=== PATIENT | female | born 1990 | race Caucasian/White ===

== ENCOUNTER 2023-11-04 09:02 | Day surgery (SDC) | payer OTHER ==
[~2023-11-04] VITALS: Ht 162.6 cm; Wt 77.3 kg
--- NOTE | ~2023-11-04 | OR ---
[facility] [place] [facility] [address] [place], [place] [address] Draft DATE OF OPERATION: 11/04/2023 SURGEON: Tucker Saunders MD PREOPERATIVE DIAGNOSES: Chronic tonsillitis, tonsil lithiasis. POSTOPERATIVE DIAGNOSES: Chronic tonsillitis, tonsil lithiasis. PROCEDURE: Tonsillectomy. ANESTHESIA: General orotracheal, HOME VISITOR, Jose Raul. PREOPERATIVE HISTORY: Reji is a 33-year-old young lady with chronic tonsillitis, multiple infections, chronic sore throats, tonsil lithiasis, taken to the operating room for the above-mentioned procedures. OPERATIVE PROCEDURE AND FINDINGS: After informed consent, the patient was taken to the operating room, placed in the supine position where general orotracheal anesthesia was induced. The patient and procedure were verified. The patient was repositioned. McIvor mouth gag placed into suspension. Headlight exam of the pharynx showed cryptic very retracted tonsils. The left tonsil was grasped with a tenaculum, retracted medially and removed from its fossa with mucosal sparing incisions with Coblation. The field was dry after the procedure. Same procedure on the right tonsil. Tonsils were sent to pathology. Mouth gag was released for several minutes. Reinspection showed no bleeding points. The pharynx was suctioned clear of blood and secretions. Mouth gag was removed. The patient was awakened, extubated, transported to recovery room in good condition. No complications. BLOOD LOSS: Minimal. SPECIMEN: To pathology. PATIENT NAME: REJI HERNANDEZ OPERATIVE REPORT DATE OF : 88 REPORT #: [id number] PHYSICIAN: TUCKER SAUNDERS MD PCP: ASHLEY OSUNA MD REPORT IS CONFIDENTIAL AND NOT TO BE RELEASED WITHOUT AUTHORIZATION [address] [place] [address] Draft DRAINS: No drains. Tucker Saunders MD /[place] /[id number] Copies: ~ PATIENT NAME: REJI HERNANDEZ OPERATIVE REPORT DATE OF : 88 REPORT #: [id number] PHYSICIAN: TUKCER SAUNDERS MD PCP: ASHLEY OSUNA MD REPORT IS CONFIDENTIAL AND NOT TO BE RELEASED WITHOUT AUTHORIZATION
[~2023-11-04 09:02] MED LIST: ADULT LOW DOSE81 MG PO; ATORVASTATIN CA80 MG PO; CLARITIN10 M2 PO; CORTIFOAM15 GM RC; ENTYVIO300 MG IV; FENOGLIDE40 MG PO; LEVOTHYROXINE25 MCG PO; LIALDA1.2 GM PO; ONDANSETRON ODT4 MG PO; PENICILLIN V P500 MG PO; PEPCID20 MG PO; UCERIS9 MG PO; ZOFRAN ODT4 MG PO
[2023-11-04 09:26] VITALS: BP 119/83
--- NOTE | 2023-11-04 11:44 | NUR ---
11/04/23 1144 Sheets,Rashmi 1134 PT ARRIVED TO PACU ON 6L VIA MASK AND ORAL AIRWAY IN PLACE. PT NONAROUSABLE AND JAW THURST USED OFF AND ON. 1138 PT HEAD TURNED TO SIDE AND JAW THRUST NO LONGER NEEDED. RESP EVEN AND UNLABORED.
[2023-11-04 12:17] VITALS: BP 114/78
[2023-11-04 13:15] VITALS: BP 110/75
[2023-11-04 14:13] VITALS: BP 113/80
[2023-11-04] MEDS ORDERED: HYDROCODONE-AC473 M1 PO (14:26)
--- NOTE | 2023-11-04 14:58 | NUR ---
1220: PATIENT BACK IN DAY SURGERY ROOM FROM PACU. DROWSY, BUT EASILY AWAKENS TO VOICE. C/O PAIN AT BACK OF TONGUE. RATES PAIN 4/10. VS CHECKED. IV SITE WNL. SCDs ON. TOLERATING ICE CHIPS. ICE WATER PLACED AT BEDSIDE. CALL LIGHT WITHIN REACH. AT BEDSIDE. 1315: PATIENT AWAKENED FOR VS CHECK. DROWSY. RATES PAIN 4/10 AT BACK OF TONGUE. ALSO C/O EAR PAIN. NO NEEDS AT THIS TIME. 1415: PATIENT AWAKENED FOR VS CHECK. CONTINUES TO BE DROWSY, BUT AWAKENS EASILY TO VOICE. RATES PAIN 4/10 IN THROAT/BACK OF TONGUE. TOLERATING WATER. ALEYDA SOMETHING TO EAT. STATES WOULD LIKE TO GO HOME. IV SALINE LOCKED. PATIENT ASSISTED OOB AND TO WALK AROUND ROOM. GAIT STEADY. PATIENT GETTING DRESSED. 1435: DISCHARGE INSTRUCTIONS GIVEN TO PATIENT. IV DC'D WNL. TIP INTACT. DRESSING APPLIED. 1442: PATIENT DISCHARGED TO HOME VIA WHEELCHAIR WITH .
--- NOTE | 2023-11-06 10:49 | PATH ---
[facility] [address] [facility] [place], [place] [address] Signed SPECIMEN(S): A LEFT AND RIGHT TONSILS, GROSS ONLY SPECIMEN SOURCE: A. LEFT AND RIGHT TONSILS, GROSS ONLY CLINICAL HISTORY: Recurrent strep throat FINAL PATHOLOGIC DIAGNOSIS: Left and right tonsils, gross only: - Two tonsils, 3.3 x 2 x 1.3 cm and 3 x 2 x 1.7 cm. VR:[facility] MICROSCOPIC EXAMINATION: Histologic sections of all submitted blocks are examined by light microscopy. These findings, together with the gross examination, support the pathologic diagnosis. GROSS DESCRIPTION: The specimen, labeled and designated "Krosting, bilateral tonsils," is received in formalin and consists of 2 undesignated palatine tonsils. The first tonsil is 3.3 x 2.0 x 1.3 cm. The mucosal surface is pink-magallon smooth with areas of folds. Cut sections reveal a pink homogeneous cut surface, with the usual crypt-like architecture. The second tonsil is 3.0 x 2.0 x 1.7 cm. The mucosal surface is pink-magallon smooth with areas of folds. Cut sections reveal a pink homogeneous cut surface, with the usual crypt-like architecture. Gross examination only. JS (under the direct supervision of a pathologist) The Gross Description was prepared using a voice recognition system. The report was reviewed for accuracy; however, sound-alike word errors, addition and/or deletions may occur. If there is any question about this report, please contact Client Services. PERFORMING LABORATORY: Technical component was performed by [facility], [address] [place] [id number] (CLIA# [id number]). Diagnostician: Akin Brown MD Pathologist Electronically Signed 11/06/2023 PATIENT NAME: REJI HERNANDEZ PATHOLOGY DATE OF : 88 REPORT #: [id number] PHYSICIAN: [facility] PCP: ASHLEY OSUNA MD REPORT IS CONFIDENTIAL AND NOT TO BE RELEASED WITHOUT AUTHORIZATION [address] [address] Signed Copies: ~ PATIENT NAME: REJI HERNANDEZ PATHOLOGY DATE OF : 88 REPORT #: [id number] PHYSICIAN: [facility] PCP: ASHLEY OSUNA MD REPORT IS CONFIDENTIAL AND NOT TO BE RELEASED WITHOUT AUTHORIZATION
== END 2023-11-04 14:42 | disposition home or self-care (01) ==
LOC: DS 09:02
PROVIDERS: ATTEND Otolaryngology
PROC: 0CBPXZZ Excision of Tonsils, External Approach (ICD-10-PCS; principal; 2023-11-04 10:30)
DX: J35.01 Chronic tonsillitis (principal); J35.8 Other chronic diseases of tonsils and adenoids; Z79.899 Other long term (current) drug therapy
CPT/HCPCS: 00170; J0131; J1100; J2001; J2250; J2704; J3010; J3490; J7121